=== PATIENT | male | born 1995 | race Caucasian/White ===

== ENCOUNTER 2019-12-06 03:12 | Emergency (ER) | payer SELFPAY ==
[~2019-12-06] VITALS: Ht 175.3 cm; Wt 68.1 kg
--- NOTE | 2019-12-06 03:25 | PHYS DOC ---
General Adult EDM: Chief Complaint: OVERDOSE HPI: HPI: Patient is a 24 year old male who presents with report that he had taken 37 Fioricet tablets at around 9:30 PM on night. Patient states that he has been out until about a few hours ago when he was woken due to a wellness check by police. Patient's roommate had reportedly found him passed out and had called the police. Patient indicates that he did have an episode of vomiting about 3 hours ago, shortly after being woken up from the wellness check. Patient states that he had taken the pills trying to take his life. Patient does have a history of mental health problems and has cut numerous times in the past. [] (YESSICA POSADA Jr. DO) Review of Systems: Review of Systems: Constitutional: Denies fever or chills. [] Respiratory: Denies cough or shortness of breath. [] Cardiovascular: Denies chest pain or edema. [] GI: Denies abdominal pain. Complains of nausea and vomiting [] Integument: Denies rash. [] Neurologic: Denies headache, focal weakness or sensory changes. [] Psychiatric: Positive suicide attempt/ideations. [] (YESSICA POSADA Jr. DO) Heart Score: Risk Factors: Risk Factors: DM, Current or recent (<one month) smoker, HTN, HLP, family history of CAD, obesity. Risk Scores: Score 0 - 3: 2.5% MACE over next 6 weeks - Discharge Home Score 4 - 6: 20.3% MACE over next 6 weeks - Admit for Clinical Observation Score 7 - 10: 72.7% MACE over next 6 weeks - Early Invasive Strategies (YESSICA POSADA Jr. DO) Physical Exam: PE: Constitutional: Well developed, well nourished, no acute distress, non-toxic appearance. [] HENT: Normocephalic, atraumatic, bilateral external ears normal, oropharynx moist, no oral exudates, nose normal. [] Eyes: PERRLA, EOMI, conjunctiva normal, no discharge. [] Neck: Normal range of motion, no tenderness, supple, no stridor. [] Cardiovascular: Regular rate and rhythm [] Lungs & Thorax: Bilateral breath sounds clear to auscultation [] Abdomen: Bowel sounds normal, soft, no tenderness. [] Skin: Warm, dry, no erythema, no rash. [] Extremities: No tenderness, no cyanosis, no clubbing, ROM intact, no edema. [] Neurologic: Alert and oriented X 3, no focal deficits noted. [] Psychologic: Flattened affect with depressed mood. [] (YESSICA POSADA Jr., DO) EKG: EKG: [] (YESSICA POSADA Jr., DO) Radiology/Procedures: Radiology/Procedures: [] (YESSICA POSADA Jr., DO) Course & Med Decision Making: Course & Med Decision Making Pertinent Labs and Imaging studies reviewed. (See chart for details) [] (YESSICA POSADA Jr., DO) Course & Med Decision Making Patient care turned over to me by Dr Posada at shift change. PAT evaluated patient in ED and recommend that he be transferred to [facility]. Patient has received total of 3L IVF in ED. Patient says that he will go on voluntary basis. (DALTON RODAS DO) Dragon Disclaimer: Dragon Disclaimer: This electronic medical record was generated, in whole or in part, using a voice recognition dictation system. (YESSICA POSADA Jr., DO) Departure Departure Impression: Primary Impression: Suicide attempt Additional Impressions: Suicidal ideation Overdose Qualified Codes: T50.902A - Poisoning by unspecified drugs, medicaments and biological substances, intentional self-harm, initial encounter Disposition: 01 HOME, SELF-CARE Condition: GOOD Patient Instructions: Suicidal Feelings, How to Help Yourself, Suicide, Helping Someone Who is Suicidal Additional Instructions: Patient is instructed to go to [facility] immediately from the ER. Justicifation of Admission Dx: Justifications for Admission: Justification of Admission Dx: Comment: (not applicable) (YESSICA POSADA Jr., DO) Justification of Admission Dx: No (DALTON RODAS DO) YESSICA POSADA Jr., DO Dec 06, 2019 03:25 DALTON RODAS DO Dec 06, 2019 11:18
[2019-12-06] MEDS ORDERED: IV NORMAL SALINE 1000ML BAG 1,000 ML IV SCH (03:30)
[2019-12-06 03:59] LABS: BILIRUBIN,URINE NEGATIVE (NEG); CLARITY,URINE CLEAR; COLOR,URINE YELLOW; NITRITE,URINE NEGATIVE (NEG); PROTEIN,URINE NEGATIVE (NEG-TRACE); UROBILINOGEN,URINE 0.2 mg/dL (0.2 mg/dL)
[2019-12-06 04:18] LABS: BARBITURATES POS (NEG); CANNABINOIDS POS (NEG); COCAINE NEG (NEG); METHADONE NEG (NEG); OPIATES NEG (NEG); PHENCYCLIDINE NEG (NEG)
[2019-12-06 04:24] LABS: AMPHETAMINE/METHAMPHETAMINE NEG (NEG)
[2019-12-06 04:29] LABS: BACTERIA,URINE FEW /HPF (0-FEW); SQUAMOUS EPITHELIAL CELL,UR FEW /LPF
[2019-12-06 04:37] LABS: BASO % 0 % (0-3); EOS % 0 % (0-3); HEMATOCRIT 45.6 % (39.0-53.0); HEMOGLOBIN 16.1 g/dL (13.0-17.5); LYMPH # 1.3 x10^3/uL (1.0-4.8); LYMPH % 12 % (24-48); MEAN CORPUSCULAR HEMOGLOBIN 32 pg (25-35); MEAN CORPUSCULAR HGB CONC 35 g/dL (31-37); MEAN CORPUSCULAR VOLUME 91 fL (79-100); MONO # 0.8 x10^3/uL (0.0-1.1); MONO % 8 % (0-9); NEUT # 8.8 x10^3/uL (1.8-7.7); NEUT % 80 % (31-73); PLATELET COUNT 297 x10^3/uL (140-400); RED CELL DISTRIBUTION WIDTH 12.8 % (11.5-14.5)
[2019-12-06 04:49] LABS: CALCIUM 8.8 mg/dL (8.5-10.1); GFR 90.3; POTASSIUM 3.5 mmol/L (3.5-5.1); PROTHROMBIN TIME PATIENT 13.8 SEC (11.7-14.0)
[2019-12-06 04:51] LABS: BENZODIAZEPINES NEG (NEG)
[2019-12-06 04:54] LABS: ALBUMIN 4.3 g/dL (3.4-5.0); DIRECT BILIRUBIN 0.2 mg/dL (0.0-0.2); MAGNESIUM 2.1 mg/dL (1.8-2.4); TOTAL BILIRUBIN 0.8 mg/dL (0.2-1.0); TOTAL PROTEIN 7.3 g/dL (6.4-8.2)
[2019-12-06 04:55] LABS: ETHANOL < 10 mg/dL (0-10); SALIC < 2.8 mg/dL (2.8-20.0)
[2019-12-06 04:57] LABS: ACETAMIN < 2.0 mcg/ml (10-30)
[2019-12-06 07:01] LABS: ALT (SGPT) 42 U/L (16-63); AST (SGOT) 48 U/L (15-37); CREATINE KINASE 751 U/L (39-308)
[2019-12-06] MEDS ORDERED: IV NORMAL SALINE 1000ML BAG 1,000 ML IV ONE (10:15)
[2019-12-06 12:03] VITALS: BP 137/75
--- NOTE | 2019-12-08 10:51 | EKG ---
[facility] [address] [place] [address] Test Date: 2019-12-06 Test Time: 03:27:52 Pat Name: ARETHA VELAZQUEZ Department: Room: Gender: M [employer] Vertical: : 1995 Requested By: YESSICA MIRELES Order Number: [id number] Reading MD: Measurements Intervals [place] Rate: 84 P: 38 WA: 162 QRS: 74 QRSD: 96 T: 56 QT: 362 QTc: 431 Interpretive Statements SINUS RHYTHM QRS(T) CONTOUR ABNORMALITY CONSIDER INFERIOR MYOCARDIAL DAMAGE POSSIBLY ABNORMAL ECG RI6.01 No previous ECG available for comparison
== END 2019-12-06 12:06 | disposition home or self-care (01) ==
LOC: ER 03:12
DX: T42.3X2A Poisoning by barbiturates, intentional self-harm, initial encounter (principal); R11.2 Nausea with vomiting, unspecified; Y92.89 Other specified places as the place of occurrence of the external cause
CPT/HCPCS: 36415; 80048; 80076; 80307; 80329; 81001; 82550; 83735; 84450; 84460; 85025; 85610; 96360; 96361; 99285; G0480; J7030; 93005